=== PATIENT | female | born 1955 | race Caucasian/White ===

== ENCOUNTER → 2019-06-15 13:13 | Outpatient (BNVA) | payer MEDICARE, OTHER, SELFPAY | PROVIDERS: Family Provider Nurse Practitioner Family; PCP Nurse Practitioner Family; Visit Provider Nurse Practitioner | DX: M54.9 Dorsalgia, unspecified (principal); F17.210 Nicotine dependence, cigarettes, uncomplicated; Z98.890 Other specified postprocedural states; Z79.891 Long term (current) use of opiate analgesic | CPT/HCPCS: 99214 ==

== ENCOUNTER 2019-08-20 18:17 | Outpatient (CLI) | payer MEDICARE, OTHER, SELFPAY ==
[2019-08-20 19:56] LABS: Basophils # 0.1 10^3/uL (0.0-0.1); Basophils % 0.9 %; Eosinophils # 0.2 10^3/uL (0.0-0.8); Eosinophils % 2.1 %; Hematocrit 47.9 % (37.0-47.0); Hemoglobin 15.5 g/dL (11.5-15.3); Lymphocytes # 1.9 10^3/uL (0.8-4.8); Lymphocytes % 23.9 %; Mean Corpuscular HGB Conc 32.4 g/dL (30.0-36.0); Mean Corpuscular Hemoglobin 31.1 pg (28.0-34.0); Mean Corpuscular Volume 96.2 fL (81-99); Mean Platelet Volume 10.8 fL (7.4-10.4); Monocytes # 0.8 10^3/uL (0.2-0.9); Monocytes % 10.3 %; Neutrophils % 62.5 %; Nucleated Red Blood Cells % 0 %; Platelet Count 249 10^3/cmm (130-400); Red Blood Count 4.98 10^6/uL (4.1-5.3)
[2019-08-20 20:48] LABS: Erythrocyte Sedimentation Rate 9 mm/hr (0-15)
[2019-08-20 23:52] LABS: Alanine Aminotransferase 17 U/L (0-33); Albumin Level 4.4 g/dL (3.5-5.2); Alkaline Phosphatase 55 IU/L (35-105); Anion Gap 15.2 (5-19); Aspartate Amino Transferase 26 U/L (0-32); Blood Urea Nitrogen 19 mg/dL (8-23); Calcium 10.2 mg/dL (8.5-10.5); Carbon Dioxide 28 mmol/L (22-29); Chloride 103 mmol/L (98-107); Cholesterol 175 mg/dL (0-200); Globulin 2.5 g/dL (1.3-4.6); Glomerular Filtration Rate 62.8 mL/min (90-130); Glucose 62 mg/dL (65-115); HDL Cholesterol 53 mg/dL (60-100); LDL Cholesterol Calculated 101 mg/dL (50-129); LDL HDL Ratio 1.91 RATIO (0.00-3.22); Osmolality Calculated 284 mOsm/kg (285-295); Potassium 6.2 mmol/L (3.5-5.1); Sodium 140 mmol/L (136-145); Thyroid Stimulating Hormone 1.28 uIU/mL (0.27-4.20); Total Bilirubin 0.3 mg/dL (0.15-1.2); Total Protein 6.9 g/dL (6.6-8.7); Triglycerides 106 mg/dL (0-150)
[2019-08-22 12:47] LABS: Anti-Nuclear Antibody Screen NEGATIVE (NEGATIVE)
== END 2019-08-20 18:18 | disposition home or self-care (01) ==
PROVIDERS: Family Provider Nurse Practitioner Family; PCP Nurse Practitioner Family; Visit Provider Nurse Practitioner Family
DX: I73.00 Raynaud's syndrome without gangrene (principal); I10 Essential (primary) hypertension
CPT/HCPCS: 80053; 80061; 84443; 85025; 85651

== ENCOUNTER 2019-08-27 19:03 | Outpatient (CLI) | payer MEDICARE, OTHER, SELFPAY | END 2019-08-27 19:04 | disposition home or self-care (01) | LOC: LAB 19:09 | PROVIDERS: Family Provider Nurse Practitioner Family; PCP Nurse Practitioner Family; Visit Provider Nurse Practitioner Family | DX: Z01.89 Encounter for other specified special examinations (principal) | CPT/HCPCS: 84132 ==

== ENCOUNTER → 2019-09-27 12:50 | Outpatient (BNVA) | payer MEDICARE, OTHER, SELFPAY | PROVIDERS: Family Provider Nurse Practitioner Family; PCP Nurse Practitioner Family; Visit Provider Anesthesiology | DX: M54.5 Low back pain (principal); F17.210 Nicotine dependence, cigarettes, uncomplicated; Z98.890 Other specified postprocedural states; Z79.891 Long term (current) use of opiate analgesic; Z71.6 Tobacco abuse counseling | CPT/HCPCS: 99214 ==

== ENCOUNTER 2019-11-06 10:14 | Outpatient (CLI) | payer MEDICARE, OTHER, SELFPAY ==
--- NOTE | 2019-11-06 10:15 | USCV_ITS ---
Inge Guzman Age: 64 Gender: F : 1955 Exam Date: 11/06/2019 10:37 Ordering Phys: Yvette Storm MD ([email or web address]) Technologist: Leticia Telles Exam Location: [facility] – [place] Indication: HISTORY: Lower extremity edema AND CELLULITIS. PROCEDURES: FINDINGS: The veins are found to be easily compressible. Significant venous reflux was noted on the right side at the below-knee segment of the greater saphenous vein. Significant venous reflux was noted at the distal and below-knee greater saphenous vein segments on the left side CONCLUSIONS 1. No evidence of deep vein thrombosis in the above-mentioned veins. 2. Significant venous reflux of greater than 500 ms was noted at the below-knee greater saphenous vein segment of the right side with a reflux time of 2280 ms. The venous segment was greater than 1 cm from the surface. 3. Significant venous reflux of greater than 500 ms were noted at the distal and below-knee greater saphenous vein segments on the left side. These venous segments were greater than 1 cm deep from the surface. 4. The venous dimensions and the depth from the surface are as mentioned above Dr Yvette Storm MD FAC (Electronically Signed) Final Date: 06 November 2019 16:08 S
== END 2019-11-06 10:15 | disposition home or self-care (01) ==
LOC: RAD 10:17
PROVIDERS: PCP Nurse Practitioner Family; Visit Provider Internal Medicine Cardiovascular Disease
DX: M79.89 Other specified soft tissue disorders (principal); R60.9 Edema, unspecified; L03.90 Cellulitis, unspecified
CPT/HCPCS: 93970

== ENCOUNTER 2019-11-07 08:35 | Outpatient (CLI) | payer MEDICARE, OTHER, SELFPAY ==
--- NOTE | 2019-11-07 08:45 | USCV_ITS ---
Inge Guzman Age: 64 Gender: F : 1955 Exam Date: 11/07/2019 08:56 Ordering Phys: Yvette Storm MD ([email or web address]) Technologist: Leticia Telles Exam Location: [facility] [place] Indication: PAD Risk Factors: Previous Vascular Surgery: RIGHT LEFT BP: 179.0 / BP: 168.0/ 0 0 Waveform Velocity (cm/s) Velocity (cm/s) Waveform Triphasic 221.1 Iliac Prox 105.9 Triphasic Triphasic 180.8 Iliac Mid 106.7 Triphasic Triphasic 154.6 Iliac Distal 115.0 Triphasic Triphasic 123.2 DIRECTOR FUNDRAISING 99.9 Triphasic Triphasic 135.2 SFA Prox 110.4 Triphasic Triphasic 118.9 SFA Mid 99.9 Triphasic Triphasic 83.9 SFA Dist 128.8 Triphasic Triphasic 96.2 POP 63.1 Triphasic Monophasic 63.8 WIRE SAWYER 37.6 Monophasic Monophasic 88.0 DPA 64.5 Triphasic 0.9 KATHY 1.0 FINDINGS RT TBI 0.69 LT TBI 0.72 Mild to moderate diffuse plaques in the iliac and femoral arteries bilaterally CONCLUSIONS 1. Slightly diminished resting KATHY and TBI on the right side, suggestive of mild peripheral artery disease. 2. Normal resting KATHY and TBI on the left side, suggesting no significant arterial obstruction 3. Mild to moderate diffuse plaques in the iliac and femoral arteries bilaterally Dr Yvette Storm MD [facility] (Electronically Signed) Final Date: 07 November 2019 22:54 S
== END 2019-11-07 08:36 | disposition home or self-care (01) ==
LOC: RAD 08:39
PROVIDERS: PCP Nurse Practitioner Family; Visit Provider Internal Medicine Cardiovascular Disease
DX: I73.9 Peripheral vascular disease, unspecified (principal); I70.8 Atherosclerosis of other arteries
CPT/HCPCS: 93925

== ENCOUNTER → 2019-11-09 13:14 | Outpatient (BNVA) | payer MEDICARE, OTHER, SELFPAY | PROVIDERS: Family Provider Nurse Practitioner Family; PCP Nurse Practitioner Family; Visit Provider Anesthesiology | DX: M54.42 Lumbago with sciatica, left side (principal); M54.41 Lumbago with sciatica, right side; F17.210 Nicotine dependence, cigarettes, uncomplicated; Z79.891 Long term (current) use of opiate analgesic; Z71.6 Tobacco abuse counseling; Z98.890 Other specified postprocedural states | CPT/HCPCS: 99214 ==

== ENCOUNTER → 2020-01-03 13:56 | Outpatient (BNVA) | payer MEDICARE, OTHER, SELFPAY | PROVIDERS: Family Provider Nurse Practitioner Family; PCP Nurse Practitioner Family; Visit Provider Anesthesiology | DX: M54.42 Lumbago with sciatica, left side (principal); M54.41 Lumbago with sciatica, right side; F17.210 Nicotine dependence, cigarettes, uncomplicated; Z79.891 Long term (current) use of opiate analgesic; Z98.890 Other specified postprocedural states | CPT/HCPCS: 99213; 99214 ==

== ENCOUNTER → 2020-03-11 12:41 | Outpatient (BNVA) | payer MEDICARE, OTHER, SELFPAY | PROVIDERS: Family Provider Nurse Practitioner Family; PCP Nurse Practitioner Family; Visit Provider Anesthesiology | DX: M54.42 Lumbago with sciatica, left side (principal); F17.210 Nicotine dependence, cigarettes, uncomplicated; Z79.891 Long term (current) use of opiate analgesic; Z98.890 Other specified postprocedural states | CPT/HCPCS: 99212; 99214 ==

== ENCOUNTER → 2020-05-23 13:57 | Outpatient (BNVA) | payer MEDICARE, OTHER, SELFPAY | PROVIDERS: Family Provider Nurse Practitioner Family; PCP Nurse Practitioner Family; Visit Provider Anesthesiology | DX: M54.42 Lumbago with sciatica, left side (principal); F17.210 Nicotine dependence, cigarettes, uncomplicated; F18.10 Inhalant abuse, uncomplicated; Z98.890 Other specified postprocedural states; Z79.891 Long term (current) use of opiate analgesic | CPT/HCPCS: 99213 ==

== ENCOUNTER 2020-06-16 10:38 | Outpatient (CLI) | payer MEDICARE, OTHER, SELFPAY ==
--- NOTE | 2020-06-16 10:45 | CT_ITS ---
WS: [id number] LDCT LUNG CANCER SCREENING TECHNIQUE: Noncontrast CT of the chest with coronal and sagittal reformatted images. CLINICAL INFORMATION: NICOTINE DEPEDENCE, CIGARETTES COMPARISON: 4 20,018 DLP: 53.79 mGy.cm DIvol: 1.[address] scans at [facility] use at least one of these dose optimization techniques: automat ed exposure control; mA and/or kV adjustment per patient size (includes targeted exams where dose is matched to clinical indication); or iterative reconstruction. FINDINGS: Moderate chronic emphysematous changes. No focal consolidation or pleural fluid. Spiculated pulmonary nodule right upper lobe laterally new from the prior examination suspicious for neoplasm. This measu res approximately 1.0 x 1.0 CM. Additional adjacent satellite nodule measuring 7.8 x 7.5 mm. Subsegmental atelectasis in the right upper lobe, lingula, right middle lobe. No mediastinal or hilar lymphadenopathy. Coronary calcification. Calcified right hilar lymph nodes. A few calcified granulom as. Chronic anterior wedging in the mid thoracic spine with vertebroplasty changes at T7-T8. Heterogeneous nodular breast tissue upper outer right breast.Further evaluation with diagnostic mammo graphy and ultrasound. CT/CT lung screening [id number] IMPRESSION: LUNG-RADS: 4X-Suspicious FOLLOW UP: PET/CT recommended HETEROGENEOUS NODULAR BREAST TISSUE UPPER OUTER RIGHT BREAST. RECOMMEND FURTHER EVALUATION WITH DIAGNOSTIC MAMMOGRAPHY AND ULTRASOUND.
== END 2020-06-16 10:39 | disposition home or self-care (01) ==
LOC: CT 10:39
PROVIDERS: PCP Nurse Practitioner Family; Visit Provider Nurse Practitioner Family
DX: Z12.2 Encounter for screening for malignant neoplasm of respiratory organs (principal); F17.210 Nicotine dependence, cigarettes, uncomplicated
CPT/HCPCS: 71271

== ENCOUNTER → 2020-06-19 15:23 | Outpatient (BNVA) | payer MEDICARE, OTHER, SELFPAY | PROVIDERS: PCP Nurse Practitioner Family; Visit Provider Nurse Practitioner Family | DX: Z11.52 Encounter for screening for COVID-19 (principal) | CPT/HCPCS: 87635 ==

== ENCOUNTER 2020-06-23 11:35 | Outpatient (CLI) | payer MEDICARE, OTHER, SELFPAY ==
--- NOTE | 2020-06-23 13:25 | PFTS_ITS ---
Date of Study:06/23/20 Date of Dictation: 06/25/2020 MECHANICS: Forced vital capacity (FVC) is normal. Forced expiratory volume in one second (FEV1) is normal. FEV1/FVC is normal. Postbronchodilator study not performed. FLOW VOLUME LOOP: Normal . LUNG VOLUMES: Not measured DIFFUSING CAPACITY FOR CARBON MONOXIDE: Not measured . INTERPRETATION: The spirometry is normal. Postbronchodilator study not performed. Please correlate clinically. MTDD
== END 2020-06-23 11:36 | disposition home or self-care (01) ==
LOC: RT 11:38
PROVIDERS: PCP Nurse Practitioner Family; Visit Provider Nurse Practitioner Family
DX: J44.9 Chronic obstructive pulmonary disease, unspecified (principal)
CPT/HCPCS: 94010

== ENCOUNTER 2020-07-01 12:01 | Outpatient (CLI) | payer MEDICARE, OTHER, SELFPAY ==
--- NOTE | 2020-07-01 12:45 | USCV_ITS ---
Inge Guzman Age: 65 Gender: F : 1955 Exam Date: 07/01/2020 12:20 Ordering Phys: Yvette Storm MD ([email or web address]) Technologist: Charis Alejandro Exam Location: [facility] [place] Indication: BLE CRAMPING PVD Risk Factors: Previous Vascular Surgery: RIGHT LEFT BP: 100.0 / BP: 110.0/ 0 0 Waveform Velocity (cm/s) Velocity (cm/s) Waveform Triphasic 245.2 Iliac Prox 109.4 Triphasic Triphasic 236.8 Iliac Mid 164.1 Triphasic Triphasic 178.3 Iliac Distal 137.4 Triphasic Triphasic 149.1 HOOKER INSPECTOR 135.4 Triphasic Triphasic 127.9 SFA Prox 113.6 Triphasic Triphasic 108.1 SFA Mid 123.5 Triphasic Triphasic 126.8 SFA Dist 174.0 Triphasic Triphasic 79.8 POP 57.2 Biphasic Triphasic 64.9 SECTIONIZER 51.3 Triphasic Triphasic 62.9 DPA 63.1 Triphasic 1.0 KATHY 1.1 FINDINGS RT SECTIONIZER- 115 RT DPA- 112 LT SECTIONIZER- 118 LT DPA- 120 Mild to moderate intravenous plaques in the iliac and femoral arteries bilaterally Normal resting KATHY of 1.0 on the right side and 1.1 in the left side CONCLUSIONS 1. Normal resting ABIs bilaterally. 2. Mild to moderate heterogeneous plaques bilaterally in the iliac and femoral arteries with possibly no hemodynamically significant stenosis. Dr Yvette Storm MD [facility] (Electronically Signed) Final Date: 02 July 2020 08:23 S
== END 2020-07-01 12:02 | disposition home or self-care (01) ==
LOC: US 12:02
PROVIDERS: PCP Nurse Practitioner Family; Visit Provider Internal Medicine Cardiovascular Disease
DX: I73.9 Peripheral vascular disease, unspecified (principal); I70.8 Atherosclerosis of other arteries
CPT/HCPCS: 93925

== ENCOUNTER 2020-07-04 10:13 | Outpatient (CLI) | payer MEDICARE, OTHER, SELFPAY ==
--- NOTE | 2020-07-04 10:17 | MM_ITS ---
WS: [id number] DIAGNOSTIC BILATERAL DIGITAL MAMMOGRAM WITH CAD RIGHT breast ultrasound, limited HISTORY: RT BREAST LUMP UPPER OUTER QUADRANT COMPARISON: 09/29/2018, 08/12/2017, 03/14/2013 TECHNIQUE: Bilateral craniocaudad, mediolateral oblique, and mediolateral views are submitted. Spot c ompression RIGHT CC. Computer aided detection utilized. Breast composition: The breasts are heterogeneously dense, which may obscure small masses. Mass in th e upper outer quadrant of the RIGHT breast has been present since 2012. Not significantly changed in size. This mass corresponds to the mass seen on recent PET/CT. Benign bilateral calcifications. RIGHT breast ultrasound, limited. Mass present in the upper outer quadrant of the RIGHT breast measures 1.4 x 1.9 x 0.6 cm. This mass i s been present on multiple prior examinations. No increased vascularity and the margins are smooth. MM/[place] [id number] IMPRESSION: BI-RADS: 2-Benign FOLLOW UP: 1 Year Follow-up Long-term stability of the solid mass in the RIGHT upper outer quadrant therefo re likely benign.
== END 2020-07-04 10:14 | disposition home or self-care (01) ==
LOC: RADSHAW 10:15
PROVIDERS: PCP Nurse Practitioner Family; Visit Provider Nurse Practitioner Family
DX: N63.11 Unspecified lump in the right breast, upper outer quadrant (principal)
CPT/HCPCS: 76642; 77066

== ENCOUNTER → 2020-07-23 13:34 | Outpatient (BNVA) | payer MEDICARE, OTHER, SELFPAY | PROVIDERS: PCP Nurse Practitioner Family; Visit Provider Anesthesiology | DX: G89.29 Other chronic pain (principal); M54.42 Lumbago with sciatica, left side; F17.210 Nicotine dependence, cigarettes, uncomplicated; Z79.891 Long term (current) use of opiate analgesic | CPT/HCPCS: 99213 ==

== ENCOUNTER → 2020-09-10 13:29 | Outpatient (BNVA) | payer MEDICARE, OTHER, SELFPAY | PROVIDERS: PCP Nurse Practitioner Family; Referring Provider Nurse Practitioner Family; Visit Provider Nurse Practitioner Family | DX: N39.46 Mixed incontinence (principal) | CPT/HCPCS: 81003 ==

== ENCOUNTER 2020-09-15 10:41 | Outpatient (CLI) | payer MEDICARE, OTHER, SELFPAY ==
--- NOTE | 2020-09-15 10:52 | MR_ITS ---
WS: [id number] MRI BRAIN WITH AND WITHOUT CONTRAST HISTORY: CHRONIC HEADACHE COMPARISON: 07/14/2015 TECHNIQUE: Multiplanar imaging performed through the brain with MultiHance 14 ml's IV. No acute infarcts are seen. Davis-white matter differentiation is well preserved. Mild progression of chronic microvascular ischemic changes since 2016. Bilateral periventricular and subchondral white ma tter signal abnormalities. Mild progression since the prior study. No susceptibility artifacts or prior lacunar infarcts. Ventricles and extra-axial spaces are normal. Clivus and pituitary gland are normal. Visualized posterior fossa and brainstem are also normal. Postcontrast images are negative for masses or vascular malformations. Dural venous sinuses are normal. Paranasal sinuses: Well aerated with no significant disease. Mastoid air cells: Normal. Calvarium and scalp: Normal. MR/MR head wo/w con [id number] IMPRESSION: 1. Moderate chronic microvascular ischemic changes in the white matter. Progre ssed since 2016. 2. No enhancing masses. 3. No acute infarct.
[2020-09-15] MEDS: gadobenate dimeglumine 20 mL vial IV (11:37)
== END 2020-09-15 10:42 | disposition home or self-care (01) ==
PROVIDERS: PCP Nurse Practitioner Family; Visit Provider Nurse Practitioner Family
DX: R51.9 Headache, unspecified (principal)
CPT/HCPCS: 70553; A9577

== ENCOUNTER → 2020-09-23 11:24 | Outpatient (BNVA) | payer MEDICARE, OTHER, SELFPAY | PROVIDERS: PCP Nurse Practitioner Family; Visit Provider Nurse Practitioner | DX: M54.5 Low back pain (principal); M25.512 Pain in left shoulder; F17.210 Nicotine dependence, cigarettes, uncomplicated; Z98.890 Other specified postprocedural states; Z79.891 Long term (current) use of opiate analgesic; Z71.6 Tobacco abuse counseling | CPT/HCPCS: 99215 ==

== ENCOUNTER → 2020-10-01 12:56 | Outpatient (BNVA) | payer MEDICARE, OTHER, SELFPAY | PROVIDERS: PCP Nurse Practitioner Family; Visit Provider Anesthesiology Pain Medicine | DX: M25.512 Pain in left shoulder (principal); F17.210 Nicotine dependence, cigarettes, uncomplicated; Z79.891 Long term (current) use of opiate analgesic | CPT/HCPCS: 64418; 77002; J1100; J3490 ==

== ENCOUNTER → 2020-10-23 10:42 | Outpatient (BNVA) | payer MEDICARE, OTHER, SELFPAY | PROVIDERS: PCP Nurse Practitioner Family; Visit Provider Urology | DX: N39.46 Mixed incontinence (principal); R35.8 Other polyuria | CPT/HCPCS: 81003 ==

== ENCOUNTER → 2020-11-28 10:08 | Outpatient (BNVA) | payer MEDICARE, OTHER, SELFPAY | PROVIDERS: PCP Nurse Practitioner Family; Visit Provider Anesthesiology | DX: G89.29 Other chronic pain (principal); M54.42 Lumbago with sciatica, left side; M54.2 Cervicalgia; F17.210 Nicotine dependence, cigarettes, uncomplicated; Z98.890 Other specified postprocedural states; Z79.891 Long term (current) use of opiate analgesic | CPT/HCPCS: 99214 ==

== ENCOUNTER → 2020-12-24 13:22 | Outpatient (BNVA) | payer MEDICARE, OTHER, SELFPAY | PROVIDERS: PCP Nurse Practitioner Family; Visit Provider Urology | DX: N39.46 Mixed incontinence (principal) | CPT/HCPCS: 81003 ==

== ENCOUNTER → 2021-01-29 10:32 | Outpatient (BNVA) | payer MEDICARE, OTHER, SELFPAY | PROVIDERS: PCP Nurse Practitioner Family; Visit Provider Anesthesiology | DX: G89.29 Other chronic pain (principal); M54.2 Cervicalgia; M54.50 Low back pain, unspecified; F18.10 Inhalant abuse, uncomplicated; Z98.890 Other specified postprocedural states; F17.210 Nicotine dependence, cigarettes, uncomplicated; Z79.891 Long term (current) use of opiate analgesic | CPT/HCPCS: 99214 ==

== ENCOUNTER → 2021-03-04 15:31 | Outpatient (BNVA) | payer MEDICARE, OTHER, SELFPAY | PROVIDERS: PCP Nurse Practitioner Family; Visit Provider Nurse Practitioner Family | DX: I87.2 Venous insufficiency (chronic) (peripheral) (principal) | CPT/HCPCS: 80048 ==

== ENCOUNTER → 2021-03-14 18:47 | Outpatient (BNVA) | payer MEDICARE, OTHER, SELFPAY | PROVIDERS: PCP Nurse Practitioner Family; Visit Provider Nurse Practitioner | DX: M25.561 Pain in right knee (principal) | CPT/HCPCS: 73562 ==

== ENCOUNTER → 2021-03-31 12:52 | Outpatient (BNVA) | payer MEDICARE, OTHER, SELFPAY | PROVIDERS: PCP Nurse Practitioner Family; Visit Provider Urology | DX: N39.46 Mixed incontinence (principal) | CPT/HCPCS: 81003 ==

== ENCOUNTER → 2021-05-07 09:09 | Outpatient (BNVA) | payer MEDICARE, OTHER, SELFPAY | PROVIDERS: PCP Registered Nurse; Visit Provider Anesthesiology | DX: G89.29 Other chronic pain (principal); M54.50 Low back pain, unspecified; M54.2 Cervicalgia; F18.10 Inhalant abuse, uncomplicated; F17.210 Nicotine dependence, cigarettes, uncomplicated; Z79.891 Long term (current) use of opiate analgesic; Z98.890 Other specified postprocedural states | CPT/HCPCS: 99214 ==

== ENCOUNTER 2021-07-08 20:00 | Outpatient (CLI) | payer MEDICARE, OTHER, SELFPAY | END 2021-07-08 20:01 | disposition home or self-care (01) | LOC: SLEEP 07-09 06:31 | PROVIDERS: PCP Registered Nurse; Visit Provider Anesthesiology Pain Medicine | DX: G47.10 Hypersomnia, unspecified (principal); R53.83 Other fatigue; R06.83 Snoring | CPT/HCPCS: 95810 ==

== ENCOUNTER 2021-08-10 15:30 | Outpatient (CLI) | payer MEDICARE, OTHER, SELFPAY ==
--- NOTE | 2021-08-10 15:45 | XR_ITS ---
WS: [id number] DEXA (DUAL ENERGY X-RAY ABSORPTIOMETRY) Bone mineral density was performed using a [employer] machine. HISTORY: POSTMENOPAUSAL COMPARISON: 04/02/2019 Lumbar spine BMD (L1-L4): 0.923 g/cm2 T score: -2.1 Z score: -0.8 Total hip BMD: Left: 0.635 g/cm2. T score: -3.0 Z score: -1.8 Right: 0.679 g/cm2. T score: -2.6 Z score: -1.5 10 year probability of a major osteoporotic fracture is 26.7%. Compared to the prior study from 04/02/2019. Lumbar spine bone mineral density has decrease by 5.6%. Bilateral hips bone mineral density has decreased by 0.5%. XR/XR DEXA axial skeleton* [id number] IMPRESSION: OSTEOPOROSIS based upon the WHO classification for females. Significant decreas e in bone mineral density within the lumbar spine since the prior study.
== END 2021-08-10 15:31 | disposition home or self-care (01) ==
LOC: RAD 15:34
PROVIDERS: PCP Registered Nurse; Visit Provider Registered Nurse
DX: Z78.0 Asymptomatic menopausal state (principal); M81.0 Age-related osteoporosis without current pathological fracture
CPT/HCPCS: 77080

== ENCOUNTER 2021-09-04 14:22 | Outpatient (CLI) | payer MEDICARE, OTHER, SELFPAY ==
--- NOTE | 2021-09-04 14:31 | MM_ITS ---
WS: [id number] BILATERAL 3D TOMOSYNTHESIS DIGITAL SCREENING MAMMOGRAPHY WITH CAD CLINICAL INFORMATION: SCREENING HISTORY: Screening mammogram. No current complaints. COMPARISON: July 04, 2020 TECHNIQUE: Bilateral CC and MLO views. FINDINGS: The breasts are composed of heterogeneous fibroglandular density tissue, which can limit the detectio n of small underlying mass lesions. Punctate and lucent centered calcifications. Nodular ovoid densit y upper outer quadrant RIGHT breast posterior depth is stable. No suspicious mass, asymmetry, calcifi cations, or architectural distortion. No evidence of malignancy. MM/[place] [id number] IMPRESSION: BI-RADS: 2-Benign FOLLOW UP: 1 Year Follow-up Recommend return to annual screening mammography.
== END 2021-09-04 14:23 | disposition home or self-care (01) ==
LOC: RAD 14:23
PROVIDERS: PCP Registered Nurse; Visit Provider Registered Nurse
DX: Z12.31 Encounter for screening mammogram for malignant neoplasm of breast (principal)
CPT/HCPCS: 77063; 77067

== ENCOUNTER → 2021-09-09 15:01 | Outpatient (BNVA) | payer MEDICARE, OTHER, SELFPAY | PROVIDERS: PCP Registered Nurse; Referring Provider Registered Nurse; Visit Provider Specialist | DX: R20.0 Anesthesia of skin (principal); M25.512 Pain in left shoulder | CPT/HCPCS: 73030; 99204 ==

== ENCOUNTER → 2022-02-16 14:01 | Outpatient (BNVA) | payer MEDICARE, OTHER, SELFPAY | PROVIDERS: PCP Registered Nurse; Visit Provider Internal Medicine Cardiovascular Disease | DX: I49.8 Other specified cardiac arrhythmias (principal); M79.89 Other specified soft tissue disorders; E78.5 Hyperlipidemia, unspecified; I10 Essential (primary) hypertension; R29.6 Repeated falls; R06.02 Shortness of breath; I77.9 Disorder of arteries and arterioles, unspecified; F17.210 Nicotine dependence, cigarettes, uncomplicated | CPT/HCPCS: 93005; 99214 ==

== ENCOUNTER 2022-02-19 12:19 | Outpatient (CLI) | payer MEDICARE, OTHER, SELFPAY ==
[2022-02-19 13:07] LABS: Anion Gap 13.8 (5-19); Blood Urea Nitrogen 15 mg/dL (8-23); Carbon Dioxide 29 mmol/L (22-29); Chloride 99 mmol/L (98-107); Glomerular Filtration Rate 71.3 mL/min (90-130); Glucose 97 mg/dL (65-115); NT Pro B Type Natriuretic Pept 347 pg/mL (0-125); Osmolality Calculated 287 mOsm/kg (285-295); Potassium 3.8 mmol/L (3.5-5.1); Sodium 138 mmol/L (136-145)
== END 2022-02-19 12:20 | disposition home or self-care (01) ==
PROVIDERS: PCP Registered Nurse; Visit Provider Internal Medicine Cardiovascular Disease
DX: R06.02 Shortness of breath (principal); I10 Essential (primary) hypertension
CPT/HCPCS: 36415; 80048; 83880

== ENCOUNTER 2022-03-10 09:41 | Outpatient (CLI) | payer MEDICARE, OTHER, SELFPAY ==
--- NOTE | 2022-03-10 09:30 | USCV_ITS ---
Inge Guzman Age: 67 Gender: F : 1955 Exam Date: 03/10/2022 10:52 Ordering Phys: Yvette Storm MD ([email or web address]) Technologist: Ariadna Garsia [place] [facility] [place]: sob BP: 112 / 88 HR: 59 Rhythm: Sinus Technical Quality: Adequate MEASUREMENTS (Male / Female) Normal Values 2D ECHO LV Diastolic Diameter PLAX 4.4 cm 4.2 - 5.9 / 3.9 - 5.3 cm LV Systolic Diameter PLAX 2.7 cm IVS Diastolic Thickness 0.9 cm 0.6 - 1.0 / 0.6 - 0.9 cm IVS Systolic Thickness 1.7 cm LVPW Diastolic Thickness 1.0 cm 0.6 - 1.0 / 0.6 - 0.9 cm LVPW Systolic Thickness 1.5 cm LVOT Diameter 2.0 cm LV Ejection Fraction 2D Teich 71.1 % LV Ejection Fraction MOD 2C 65.7 % LV Ejection Fraction 2C AL 66.7 % LA Diameter 2.3 cm LA Width 4.3 cm LA Height 3.8 cm RA Width 3.5 cm RA Height 3.0 cm Aorta at Sinotubular Diameter 2.6 cm IVC Diameter 2.5 cm M-MODE MV E Point Septal Separation 1.4 cm DOPPLER AV Peak Velocity 120.0 cm/s LVOT Peak Velocity 83.0 cm/s AV Area Cont Eq vti 2.1 cm squared AV Area Cont Eq pk 2.2 cm squared MV Peak Velocity 172.0 cm/s MV Area PHT 3.7 cm squared Mitral E to A Ratio 0.7 MV E' Velocity 51.5 cm/s Mitral E to MV E' Ratio 14.8 Mitral E to LV E' Lateral Ratio 14.0 Mitral E to LV E' Septal Ratio 15.8 TR Peak Velocity 199.8 cm/s TR Peak Gradient 16.0 mmHg Right Atrial Pressure 8.0 mmHg Pulmonary Artery Systolic Pressu 24.0 mmHg PV Peak Velocity 79.0 cm/s RV Acceleration Time 0.1 s RV Ejection Time 0.3 s RV AcT/ET 0.3 FINDINGS Left Ventricle Normal left ventricular size and systolic function, EF 67 %. Mild hypokinesia of the basal inferior wall segment. Mild left ventricular hypertrophy. Grade I/IV diastolic dysfunction (abnormal relaxation filling pattern), normal to mildly elevated filling pressures. Right Ventricle The right ventricle is normal in size and function. Right Atrium The right atrium is normal in size. Left Atrium Mildly increased left atrial size. Mitral Valve Thickened mitral valve. Mild mitral annular calcification. Mild mitral valve regurgitation. Aortic Valve Thickened noncoronary cusp of the aortic valve. Trace aortic valve regurgitation. Tricuspid Valve Mild tricuspid valve regurgitation. Pulmonic Valve Structurally normal pulmonic valve without significant stenosis. There is no pulmonic regurgitation. Pericardium Normal pericardium without effusion. Aorta Normal ascending aorta dimension. IVC Normal inferior vena cava. CONCLUSIONS Normal left ventricular size and systolic function, EF 67 %. Mild hypokinesia of the basal inferior wall segment. Mild left ventricular hypertrophy. Grade I/IV diastolic dysfunction (abnormal relaxation filling pattern), normal to mildly elevated filling pressures. Mildly increased left atrial size. Thickened mitral valve. Mild mitral annular calcification. Mild mitral valve regurgitation. Thickened noncoronary cusp of the aortic valve. Trace aortic valve regurgitation. Mild tricuspid valve regurgitation. Estimated pulmonary artery peak systolic pressure of 24 mmHg There is no pericardial effusion. There are no intracardiac masses. No previous study is available for comparison. Dr Yvette Storm MD [facility] (Electronically Signed) Final Date: 11 March 2022 19:40 S
== END 2022-03-10 09:42 | disposition home or self-care (01) ==
PROVIDERS: PCP Registered Nurse; Visit Provider Internal Medicine Cardiovascular Disease
DX: I08.3 Combined rheumatic disorders of mitral, aortic and tricuspid valves (principal); R06.02 Shortness of breath; R06.09 Other forms of dyspnea
CPT/HCPCS: 93306

== ENCOUNTER 2022-04-12 08:02 | Outpatient (CLI) | payer MEDICARE, OTHER, SELFPAY ==
--- NOTE | 2022-04-12 | ECG_ITS ---
[facility] Test Date: 2022-04-12 Pat Name: Inge Guzman Department: Room: Gender: Female Parole Director: : 1955 Requested By: Yvette Storm Order Number: [id number] Judy MD: Yvette Storm M.D. Interpretive Statements NAME OF STUDY: LEXISCAN SESTAMIBI STRESS TEST INDICATION: Shortness of Breath, PROCEDURE: At the baseline, the EKG revealed. The baseline heart was 82 bpm with a blood pressue of 151/79 mm of Hg Lexiscan was infused over a period of 20 seconds. A total of 0.4 milligrams of Lexiscan was infused. The stress phase was continued for a total of 5 minutes. Heart rate at the end of the stress phase was 89 bpm with a blood pressure 150/69 mm of Hg. The EKG at the peak infusion revealed no significant changes. Sestamibi was injected 20 seconds after the Lexiscan infusion. Heart rate at the end of the recovery phase was 93 bpm with a blood pressure of 149/72 mm of Hg. CONCLUSION: 1. No significant EKG changes with the LexiScan infusion 2. No LexiScan induced chest pain or cardiac arrhythmia 3. Normal blood pressure and heart rate response 4. Sestamibi/sestamibi perfusion scan pending; see separate report. Electronically Signed On 04-20-2022 18:07:29 INVESTIGATION CLERK by Yvette Storm M.D. [email or web address]
--- NOTE | 2022-04-12 08:16 | NMCV_ITS ---
NM shana perf SPECT r/s* [id number] Inge Guzman Age: 67 Gender: F : 1955 Exam Date: 04/12/2022 08:16 Ordering Phys: Yvette Storm MD ([email or web address]) Technologist: LAMAR Santizo Exam Location: [facility] Indications: SHORTNESS OF BREATH STRESS TEST Please see separate stress test report in [facility] for full findings IMAGE PROTOCOL Rest/Stress 1 Lexiscan Day Radiopharmaceutical Dose (mCi) Administration Site Administered by Rest: Tc-99m 10.9 IV LAMAR Slater Sestamibi Stress:Tc-99m 32.9 IV LAMAR Slater Sestamibi Rest: 12-Apr-2022 60 Discovery 630 Stress: 12-Apr-2022 30 Discovery 630 0.4mg Lexiscan. Images obtained in supine and prone position. SPECT RESULTS Technical Quality: Excellent Raw Data Analysis: Normal Image Corrections: No attenuation or motion correction applied Summed Stress Score: 9 Summed Rest Score: 2 Summed Difference Score: 8 PERFUSION FINDINGS Small to moderate area of moderately decreased tracer uptake in the apical anterior, apical lateral, apical septal and LV apex. Significant reversibility was noted in these regions at rest FUNCTIONAL RESULTS (calculated via Gated SPECT) Stress Image LV EF (%): 73 Stress EDV (mL):84 TID: 1.1 Stress ESV (mL):23 FUNCTIONAL FINDINGS: Segmental wall motion analysis revealing no gross wall motion abnormalities. IMPRESSIONS 1. Myocardial perfusion imaging revealing small to moderate area of reversible defect in all the apical segments suggesting ischemia in the distribution of all the 3 coronary arteries. 2. Normal LV ejection fraction of 73%. 3. LV wall motion analysis revealing no gross wall motion abnormalities. 4. Normal LV volume No similar previous studies are available for comparison Dr Yvetet Storm MD [facility] (Electronically Signed) Final Date: 14 April 2022 08:43 S
[2022-04-12] MEDS: regadenoson 0.4 Mg/5 ml Syringe IVP (10:28)
[2022-04-12 10:41] VITALS: BP 148/71; PULSE 96
== END 2022-04-12 08:03 | disposition home or self-care (01) ==
LOC: CDL 08:05
PROVIDERS: PCP Registered Nurse; Visit Provider Internal Medicine Cardiovascular Disease
DX: R06.02 Shortness of breath (principal)
CPT/HCPCS: 36415; 78452; 93017; 96374; A9500; J2785

== ENCOUNTER → 2022-05-04 10:46 | Outpatient (BNVA) | payer MEDICARE, OTHER, SELFPAY | PROVIDERS: PCP Registered Nurse; Visit Provider Internal Medicine Cardiovascular Disease | DX: R94.39 Abnormal result of other cardiovascular function study (principal); R06.02 Shortness of breath; I10 Essential (primary) hypertension; E78.5 Hyperlipidemia, unspecified; I77.9 Disorder of arteries and arterioles, unspecified; I49.8 Other specified cardiac arrhythmias; R07.9 Chest pain, unspecified; F17.210 Nicotine dependence, cigarettes, uncomplicated | CPT/HCPCS: 99215 ==

== ENCOUNTER 2022-05-28 13:38 | Outpatient (CLI) | payer MEDICARE, OTHER, SELFPAY ==
[2022-05-28 14:35] LABS: Basophils # 0.1 10^3/uL (0.0-0.1); Basophils % 0.9 %; Eosinophils # 0.4 10^3/uL (0.0-0.8); Hemoglobin 14.2 g/dL (11.5-15.3); Lymphocytes # 3.2 10^3/uL (0.8-4.8); Lymphocytes % 34.7 %; Mean Corpuscular HGB Conc 32.3 g/dL (30.0-36.0); Mean Corpuscular Hemoglobin 29.8 pg (28.0-34.0); Mean Corpuscular Volume 92.2 fl (81-99); Mean Platelet Volume 9.3 fL (7.4-10.4); Monocytes # 1.1 10^3/uL (0.2-0.9); Monocytes % 12.4 %; Neutrophils # 4.37 10^3/uL (1.8-7.7); Neutrophils % 47.7 %; Nucleated Red Blood Cells % 0 %; Platelet Count 269 10^3/cmm (130-400); Red Blood Count 4.77 10^6/uL (4.1-5.3); White Blood Count 9.2 10^3/uL (4.0-10.0)
[2022-05-28 14:50] LABS: Prothrombin Time (Patient) 12.4 Seconds (12.0-15.1)
[2022-05-28 15:05] LABS: Anion Gap 14.5 (5-19); Blood Urea Nitrogen 15 mg/dL (8-23); Calcium 8.4 mg/dL (8.5-10.5); Carbon Dioxide 27 mmol/L (22-29); Chloride 100 mmol/L (98-107); Glomerular Filtration Rate 62.3 mL/min (90-130); Glucose 80 mg/dL (65-115); NT Pro B Type Natriuretic Pept 53 pg/mL (0-125); Osmolality Calculated 284 mOsm/kg (285-295); Potassium 4.5 mmol/L (3.5-5.1); Sodium 137 mmol/L (136-145)
== END 2022-05-28 13:39 | disposition home or self-care (01) ==
LOC: LAB 13:44
PROVIDERS: PCP Registered Nurse; Visit Provider Internal Medicine Cardiovascular Disease
DX: R94.39 Abnormal result of other cardiovascular function study (principal); Z98.890 Other specified postprocedural states
CPT/HCPCS: 36415; 80048; 83880; 85025; 85610; 86850; 86900

== ENCOUNTER 2022-06-01 06:07 | Outpatient (CLI) | payer MEDICARE, OTHER, SELFPAY ==
[2022-06-01] VITALS (21 sets, daily range): BP systolic 123–160; BP diastolic 69–86; PULSE 77–91; RESP 11–18; TEMP 36.7; O2SAT 89–94; BMI 26.1
--- NOTE | 2022-06-01 06:00 | XACV_ITS ---
Exam Room: 2 Ht: 163 cm Wt: 69 kg BSA: 1.78 m2 Gender: Female : 1955 Any Known Allergies: Sulfa Exam Priority: Routine Procedure(s): Procedure Description: Diagnostic procedure Procedure Description: Left Heart Catheterization Procedure Description: Left ventriculography Procedure Description: Coronary Angiography Emeterio CARCAMO; Diagnostic Cath Status: Elective Diagnostic Findings * The left main is a medium to large caliber short vessel with no significant stenotic lesions. * The left anterior descending artery is a medium caliber vessel which appears to wrap around the LV apex. The mid LAD was found to have around 20 to 30% tubular narrowing right after the takeoff of the first diagonal branch. Minimal intimal irregularities are noted in the midsegment. No significant extremity lesions were noted. * The circumflex artery is a medium caliber dominant vessel. It gives of a high obtuse marginal branch-intermedius artery which was found to have around 30% segmental narrowing proximally. The circumflex proper was found to have minimal narrowing near the ostium. No significant stenotic lesions were noted. * The right coronary artery is a small caliber nondominant vessel which was found to have around 40% narrowing proximally. No other significant stenotic lesions were noted. PCI Status: Elective Conclusions 1. Patient with history of hypertension, dyslipidemia, peripheral artery disease, presenting with complaints of increasing shortness of breath with exertion and fatigue. Abnormal Myocardial perfusion imaging. For further evaluation of her symptoms, a cardiac catheterization was recommended. Patient underwent left heart catheterization with the left and right coronary angiogram and LV angiogram today. The findings are as follows. 2. 1. Mild coronary artery disease. #2 mild coronary calcification in the proximal segments of the left anterior descending artery and circumflex artery. #3 normal LV ejection fraction 60%. #4 LVEDP of 18 mmHg. Diagnostic RX Recommendation: medical therapy and/or counseling LV EDP: 18 mmHg Ventriculography Ejection Fraction: 60.0 % Left Ventriculography Findings: * The LV gram was performed in the DENNEY position. The LV cavity was of normal size. Mild hypokinesis of the LV apex was noted. LV ejection fraction was around 60%. LVEDP was 18 mmHg, went up to 34 mmHg following the LV angiogram. Pressures Phase:Rest AO : 102 / 75 ( 101 ) @ 7:31:00 AM 101 / 72 ( 86 ) @ 7:33:00 AM 142 / 83 ( 111 ) @ 7:41:00 AM 142 / 83 ( 110 ) @ 7:41:00 AM LV : 133 / 2 / 18 @ 7:40:00 AM 139 / 11 / 34 @ 7:41:00 AM 141 / 9 / 34 @ 7:41:00 AM Valves Phase:DefaultPhase AV : 0.0 @ 7:51:59 AM 0.0 @ 7:51:59 AM AV Mean Gradient: 0.0 @ 7:51:59 AM 0.0 @ 7:51:59 AM Clinical Evaluation EBL: 5mL-10mL Procedural Details Procedure Consent Obtained. Admit Source: Out Patient. Pre-Procedure Time Out. Identified patient by full name and date of as verbalized by the patient/guarantor. Does the consent match the physician's order: Yes. Accurate & Complete Informed Consent: Yes. Inpatient/Outpatient History & Physical on Chart: Yes. If H&P is completed, is and addenduem needed: No; If yes, is the addendum complete: N/A. Visualize and Verify Site with Patient/Guarantor: N/A. Relevant Radiology Images available: N/A. The risks, benefits, and alternatives of sedation and/or procedure were discussed by physician. The patient agrees to continue. [facility] Clinical Fraility Score: 4: Vulnerable. Dry Pan Charger Indications: Suspected CAD. Chest Pain Symptom Assessment: Atypical Angina. Cardiovascular Instability: No,. Correct patient, site and procedure confirmed by cath team. PERRLA. Strong, equal hand sprinkler installer bilaterally. Lungs clear x 5 lobes. IV Site on Arrival: 20 gauge in the left wrist. IV Fluids: 0.9% NaCl at KVO. 0 mL infused prior to yard laborer. Pre Procedural Pulses: bilateral radial was 3+. Pre Procedural Pulses: bilateral posterior tibial was 1+. Pre Procedural Pulses: bilateral dorsalis pedis was 2+. Oxygen started at 2liters/min via nasal canula. right groin was prepped with chloroprep then draped in the usual sterile fashion. right radial was prepped with chloroprep then draped in the usual sterile fashion. Physician notified. Baseline sample Acquired. HR: 86 BPM. Physician arrived. Physician scrubbed in. Immediate Pre-Procedure Time Out. Correct Patient: Yes; Correct Procedure: Yes; Correct Site: Yes; Correct Patient Position: Yes; Correct Supplies: Yes; Dried Flammable Prep: Yes; Blood Products Available: N/A;. Procedure started. Lidocaine 1% infiltrated to the right radial. Arterial access obtained. A 5 martiniquais Nicko catheter in over wire. Multiple views taken of right coronary artery. Catheter redirected to the LCA. Multiple views taken of left coronary artery. Catheter redirected to the RCA. Multiple views taken of right coronary artery. Catheter removed over the exchange wire. A 5 martiniquais Angled Pig catheter in over wire. EDP Sample taken: LV 133/2,18; HR: 73 BPM; SpO2: 94%. LV gram performed in DENNEY @ 10 mL/second for a total of 30 mL. EDP Sample taken: LV 139/11,34; HR: 92 BPM; SpO2: 94%. Pullback taken: LV 141/9,34; AO 142/83(111); Mean: 0mmHg, Peak to Peak: 0mmHg, SEP: 9sec/min; HR: 92 BPM; SpO2: 95%. Catheter inserted over the exchange wire. Physician review of cine films. Catheter removed over the exchange wire. Wire out. PERRLA. Strong, equal hand sprinkler installer bilaterally. No VTE prophylaxis required. Medication's Wasted: Lidocaine 1% = 2 mL. Medication's Wasted: Nitro = 49.8 mg. Medication's Wasted: Heparin = 1000 units. Medication's Wasted: Other = versed 1 mg. Medication's Wasted: Other = fentanyl 75 mcg. Total IV fluids: 18 mL. Post-op diagnosis: non obstructive CAD. Complications: none. Estimated blood loss: 5mL-10mL. Responsiveness - Normal response to verbal stimuli; alert and oriented, PERRLA. Airway - Unaffected, no intervention required; spontaneous ventilation. Circulation: W/N/L, pulses unchanged. Nausea/Vomiting: No. Procedure completed. Patient transferred by wheelchair to CPRU. Vital chart was stopped. Access Site Site: Right Radial artery Sheath Size: 6 Fr Hemostasis Success: Unsuccessful Procedure Medications Start: 7:23 AM Stop: 7:23 AM Medication: Versed 1 mg and Fentanyl 25 mcg Amount: 1 Route: I.V. Start: 7:29 AM Stop: 7:29 AM Medication: Verapamil Amount: 5 mg Route: I.A. Start: 7:29 AM Stop: 7:29 AM Medication: Nitrogylcerin Amount: 200 mcg Route: I.A. Start: 7:33 AM Stop: 7:33 AM Medication: Heparin Amount: 5000 units Route: I.V. I, the attending physician, have reviewed and verified all procedure medications. Yes, all medications given per verbal order History/Risk Factors Hypertension: Yes Dyslipidemia: Yes Peripheral Arterial Disease (PAD): Yes Myocardial Infarction (ME): No Obesity: No Tobacco Use: Current/Recent(w/in 1 year) Prior Interventions PCI: No CABG: No Valve Surgery: No Report Signatures Finalized by Dr Yvette Storm MD [facility] on 06/01/2022 08:16 AM
[2022-06-01] MEDS: diphenhydrAMINE 50 mg Capsule PO (06:44)
--- NOTE | 2022-06-01 07:16 | W.PM.OPSUD ---
Surgery/Procedure H&P Update DATE OF PROCEDURE: June 01, 2022 DATE H&P PERFORMED: 05/04/22 H&P UPDATE INFORMATION: I have reviewed H&P completed within last 30 days, I have examined patient prior to procedure and No changes to prior documentation PREOP DIAGNOSIS: suspected CAD; multiple risk factors for CAD PRIMARY INDICATION FOR PROCEDURE: Abnormal myocardial perfusion imaging. Peripheral artery disease, hypertension, dyslipidemia, ventricular arrhythmia PLANNED PROCEDURE: Operation Date: 06/01/22 07:00 Proposed Procedures p Left heart Catheterization 75080, R94.39,R06.02,R07.9(Left) - Yvette Storm MD PATIENT REASSESSED PRIOR TO SEDATION, WITH NO CHANGE NOTED: Yes PHYSICAL EXAM: alert, oriented x 3, clear to auscultation bilaterally and regular rate & rhythm AIRWAY EVAL/ANESTHESIA PLAN: normal airway, see other exam findings, ASA II, Monitored Anesthesia, Local Anesthesia, Risks, benefits & alternatives of sedation and/or procedure discussed and Patient agrees to continue as planned
--- NOTE | 2022-06-01 07:55 | PC.NURSE ---
Pt transferred from hospital laboratory technician to CPRU 3 for recovery. Pt is drowsy, responds appropriately to verbal stimuli. Denies pain at this time. Pt placed on bedside skin specialist. Right wrist has TR band in place, site is asymptomatic. No signs of bleeding or hematoma. Right radial pulse palpable. Educated patient on right arm activity restrictions, verbalized understanding. Family member at bedside. Will continue to monitor.
--- NOTE | 2022-06-01 11:27 | PC.NURSE ---
TR Band Removal Note 0900 - 1 ml air removed from right radial TR band. Site asymptomatic, no bleeding or hematoma noted. Radial pulse palpable. 0910 - 2 ml air removed from right radial TR band. Site asymptomatic, no bleeding or hematoma noted. Radial pulse palpable. 0925 - 2 ml air removed from right radial TR band. Site asymptomatic, no bleeding or hematoma noted. Radial pulse palpable. 0935 - 2 ml air removed from right radial TR band. Site asymptomatic, no bleeding or hematoma noted. Radial pulse palpable. 0950 - 2 ml air removed from right radial TR band. Site asymptomatic, no bleeding or hematoma noted. Radial pulse palpable. 1000 - 2 ml air removed from right radial TR band. Site asymptomatic, no bleeding or hematoma noted. Radial pulse palpable. 1010 - 2 ml air removed from right radial TR band. Site asymptomatic, no bleeding or hematoma noted. Radial pulse palpable. 1020 - 2 ml air removed from right radial TR band. TR band deflated, left in place to monitor for bleeding. Site asymptomatic, no bleeding or hematoma noted. Radial pulse palpable. 1035 - Deflated TR band removed, placed band aid over site. Site asymptomatic, no signs of bleeding or hematoma.
== END 2022-06-01 12:35 | disposition home or self-care (01) ==
PROVIDERS: PCP Registered Nurse; Visit Provider Internal Medicine Cardiovascular Disease
DX: I25.10 Atherosclerotic heart disease of native coronary artery without angina pectoris (principal); R06.02 Shortness of breath; I10 Essential (primary) hypertension; E78.5 Hyperlipidemia, unspecified; F17.210 Nicotine dependence, cigarettes, uncomplicated; I49.9 Cardiac arrhythmia, unspecified; I77.9 Disorder of arteries and arterioles, unspecified
CPT/HCPCS: 36415; 93458; 96361; 96365; 99152; 99153; C1769; C1887; C1894; J1644; J2250; J3010; J3490; J7030; Q0163; Q9967

== ENCOUNTER → 2022-06-08 16:23 | Outpatient (BNVA) | payer MEDICARE, OTHER, SELFPAY | PROVIDERS: PCP Registered Nurse; Visit Provider Nurse Practitioner Family | DX: I25.10 Atherosclerotic heart disease of native coronary artery without angina pectoris (principal); I10 Essential (primary) hypertension; F17.210 Nicotine dependence, cigarettes, uncomplicated | CPT/HCPCS: 36415; 80048; 99214 ==

== ENCOUNTER → 2022-06-15 12:19 | Outpatient (BNVA) | payer MEDICARE, OTHER, SELFPAY | PROVIDERS: PCP Registered Nurse; Visit Provider Thoracic Surgery (Cardiothoracic Vascular Surgery) | DX: I87.2 Venous insufficiency (chronic) (peripheral) (principal) | CPT/HCPCS: 99203 ==

== ENCOUNTER 2022-06-24 11:45 | Outpatient (CLI) | payer MEDICARE, OTHER, SELFPAY ==
--- NOTE | 2022-06-24 12:00 | USCV_ITS ---
Inge Guzman Age: 67 Gender: F : 1955 Exam Date: 06/24/2022 12:33 Ordering Phys: Alejandro Butcher MD (Andy) ([email or web address]) Technologist: Aleks Toussaint Exam Location: [facility] – [place] Indication: HISTORY: PROCEDURES: Bilateral duplex Venous Insufficiency study of the Deep and Superficial systems was carried out according to normal protocol with the patient in supine positon for deep system and dependent position for the superficial system. FINDINGS: All deep veins demonstrated compressibility without evidence of intraluminal thrombus or increased echogenicity. Spectral analysis of Doppler signals demonstrates normal response to compression maneuvers indicating patency without obstruction. Reflux determinations were made with the patient in the dependent position, the weight being on the contralateral leg. Vein measurements and reflux times are listed below were applicable. No notable reflux was seen at this time. The veins were found to be easily compressible with spontaneous blood flow. Non pulsatile flow pattern. CONCLUSIONS No evidence of DVT in the above-mentioned identifiable veins. Normal caliber veins bilaterally with no evidence of insufficiency Dr Yevtte Storm MD FAC (Electronically Signed) Final Date: 26 June 2022 13:41 S
== END 2022-06-24 11:46 | disposition home or self-care (01) ==
LOC: RAD 11:50
PROVIDERS: PCP Registered Nurse; Visit Provider Thoracic Surgery (Cardiothoracic Vascular Surgery)
DX: M79.89 Other specified soft tissue disorders (principal)
CPT/HCPCS: 93970

== ENCOUNTER → 2022-07-06 13:29 | Outpatient (BNVA) | payer MEDICARE, OTHER, SELFPAY | PROVIDERS: PCP Registered Nurse; Visit Provider Thoracic Surgery (Cardiothoracic Vascular Surgery) | DX: I87.2 Venous insufficiency (chronic) (peripheral) (principal); F17.210 Nicotine dependence, cigarettes, uncomplicated; Z79.82 Long term (current) use of aspirin | CPT/HCPCS: 99212 ==

== ENCOUNTER 2022-09-17 09:54 | Outpatient (CLI) | payer MEDICARE, OTHER, SELFPAY ==
--- NOTE | 2022-09-17 10:00 | MM_ITS ---
WS: [id number] BILATERAL SCREENING DIGITAL TOMOSYNTHESIS MAMMOGRAM WITH CAD HISTORY: SCREEN COMPARISON: 09/04/2021, 07/04/2020 Bilateral CC and MLO views with tomosynthesis and synthetic mammography submitted. Computer aided det ection analyzed. Breast composition: The breasts are heterogeneously dense, which may obscure small masses. No suspici ous masses, microcalcifications or architectural distortion. Benign calcifications within each breast . Long-term stability ovoid 14 mm mass upper outer quadrant RIGHT breast. MM/[place] [id number] IMPRESSION: BI-RADS: 2-Benign FOLLOW UP: 1 Year Follow-up
== END 2022-09-17 09:55 | disposition home or self-care (01) ==
PROVIDERS: PCP Registered Nurse; Visit Provider Registered Nurse
DX: Z12.31 Encounter for screening mammogram for malignant neoplasm of breast (principal)
CPT/HCPCS: 77063; 77067

== ENCOUNTER → 2022-09-24 10:55 | Outpatient (BNVA) | payer MEDICARE, OTHER, SELFPAY | PROVIDERS: PCP Registered Nurse; Visit Provider Nurse Practitioner Family | DX: I25.10 Atherosclerotic heart disease of native coronary artery without angina pectoris (principal); I77.9 Disorder of arteries and arterioles, unspecified; I87.2 Venous insufficiency (chronic) (peripheral); F17.210 Nicotine dependence, cigarettes, uncomplicated; I10 Essential (primary) hypertension | CPT/HCPCS: 99214 ==

== ENCOUNTER → 2022-10-27 13:54 | Outpatient (BNVA) | payer MEDICARE, OTHER, SELFPAY | PROVIDERS: PCP Registered Nurse; Visit Provider Podiatrist Foot & Ankle Surgery | DX: L60.3 Nail dystrophy (principal); I73.9 Peripheral vascular disease, unspecified | CPT/HCPCS: 99203 ==

== ENCOUNTER → 2022-12-16 14:11 | Outpatient (BNVA) | payer MEDICARE, OTHER, SELFPAY | PROVIDERS: PCP Registered Nurse; Visit Provider Student in an Organized Health Care Education/Training Program | DX: M23.332 Other meniscus derangements, other medial meniscus, left knee; M23.362 Other meniscus derangements, other lateral meniscus, left knee | CPT/HCPCS: 73560; 73565; 99203 ==

== ENCOUNTER 2023-01-12 13:40 | Outpatient (CLI) | payer MEDICARE, OTHER, SELFPAY ==
--- NOTE | 2023-01-12 14:30 | MR_ITS ---
WS: [id number] MRI LEFT KNEE HISTORY: djd left knee COMPARISON: 12/16/2022 Anterior cruciate ligament: Intact. Posterior cruciate ligament: Intact. Medial collateral ligament: Intact. Posterior lateral corner structures: Increased T2 signal extends from the joint line to the iliotibia l band. There is mild osteophyte encroachment and a small amount of edema extending to the iliotibial band. Medial menisci: Intact. Normal signal, size and shape. Lateral meniscus: Anterior horn is partially extruded from the joint space. Increased signal is inter mediate within the posterior horn. Mild blunting of the free edge. Posterior inferior mild meniscocap sular separation. There is increased vertical signal in the posterior meniscus with extension into th e meniscal root. Extensor mechanism: Distal quadriceps tendon and patellar tendons are intact. Fluid and soft tissue: Small suprapatellar joint effusion. There is mild edema surrounding the knee. No Manuel's cyst. Osseous and articular structures: Patellofemoral compartment: Mild narrowing of the patellofemoral compartment with mild chondromalacia . No marrow edema. Medial compartment: Very mild narrowing of the medial compartment with mild chondromalacia. No marrow edema. Lateral compartment: Moderate narrowing lateral compartment with moderate chondromalacia. Focal marro w edema extends from the tibial plateau into the metaphysis. Marrow edema is predominantly within the lateral most tibial plateau. Additional osteochondral changes along the weightbearing surface of the tibial plateau. There is a small osteophyte extending toward the iliotibial band. Also noted is a small amount of fluid involving the proximal tibiofibular articulation. IMPRESSION: 1. Moderate lateral compartment joint space narrowing with chondromalacia and marrow edema. Additiona l osteochondral defect along the weightbearing surface of the lateral tibial plateau. 2. Osteophyte from the lateral tibial plateau extends to abut the iliotibial band with mild edema and increased fluid at the friction site. 3. Posterior horn lateral meniscus with abnormal signal. Meniscocapsular separation with increased fl uid extending along the posterior inferior meniscus toward the root. 4. Small suprapatellar joint effusion and mild soft tissue edema. 5. Mild patellofemoral compartment narrowing with chondromalacia.
== END 2023-01-12 13:41 | disposition home or self-care (01) ==
PROVIDERS: PCP Registered Nurse; Visit Provider Student in an Organized Health Care Education/Training Program
DX: M17.12 Unilateral primary osteoarthritis, left knee (principal); M23.304 Other meniscus derangements, unspecified medial meniscus, left knee; M22.42 Chondromalacia patellae, left knee; M21.962 Unspecified acquired deformity of left lower leg; M25.762 Osteophyte, left knee
CPT/HCPCS: 73721

== ENCOUNTER → 2023-12-29 10:00 | Outpatient (BNVA) | payer MEDICARE, OTHER, SELFPAY | PROVIDERS: PCP Registered Nurse; Visit Provider Internal Medicine Cardiovascular Disease | DX: R06.02 Shortness of breath (principal); R60.0 Localized edema; I10 Essential (primary) hypertension; E78.5 Hyperlipidemia, unspecified; I87.2 Venous insufficiency (chronic) (peripheral); I49.9 Cardiac arrhythmia, unspecified; I73.9 Peripheral vascular disease, unspecified | CPT/HCPCS: 36415; 80048; 83880; 99214 ==

== ENCOUNTER 2024-01-13 14:00 | Outpatient (CLI) | payer MEDICARE, OTHER, SELFPAY ==
--- NOTE | 2024-01-13 14:20 | MM_ITS ---
WS: [id number] BILATERAL 3D TOMOSYNTHESIS DIGITAL SCREENING MAMMOGRAPHY WITH CAD CLINICAL INFORMATION: SCREENING HISTORY: Screening mammogram. No current complaints. COMPARISON: 2022 TECHNIQUE: Bilateral CC and MLO views. FINDINGS: The breasts are composed of heterogeneous fibroglandular density tissue, which can limit the detectio n of small underlying mass lesions. No suspicious mass, asymmetry, calcifications, or architectural d istortion. No evidence of malignancy. Punctate and lucent centered calcifications. Long-term stabilit y 1.5 cm nodule upper outer RIGHT breast. MM/MM [facility] tomosynthesis [id number] IMPRESSION: DENSITY:The breasts are heterogeneously dense, which may obscure small masses. BI-RADS: 2 - Benign FOLLOW UP: 1 Year Follow-up Recommend return to annual screening mammography.
== END 2024-01-13 14:13 | disposition home or self-care (01) ==
PROVIDERS: PCP Registered Nurse; Visit Provider Registered Nurse
DX: Z12.31 Encounter for screening mammogram for malignant neoplasm of breast (principal); R92.333 Mammographic heterogeneous density, bilateral breasts; R92.1 Mammographic calcification found on diagnostic imaging of breast; N63.11 Unspecified lump in the right breast, upper outer quadrant
CPT/HCPCS: 77063; 77067

== ENCOUNTER → 2024-06-06 11:22 | Outpatient (BNVA) | payer MEDICARE, OTHER, SELFPAY | PROVIDERS: PCP Registered Nurse; Visit Provider Internal Medicine Cardiovascular Disease | DX: I10 Essential (primary) hypertension (principal); Z86.73 Personal history of transient ischemic attack (TIA), and cerebral infarction without residual deficits; I65.23 Occlusion and stenosis of bilateral carotid arteries; E78.5 Hyperlipidemia, unspecified; I77.9 Disorder of arteries and arterioles, unspecified; I87.2 Venous insufficiency (chronic) (peripheral); I49.8 Other specified cardiac arrhythmias; F17.210 Nicotine dependence, cigarettes, uncomplicated | CPT/HCPCS: 99214 ==

== ENCOUNTER 2024-06-14 15:21 | Outpatient (CLI) | payer MEDICARE, OTHER, SELFPAY ==
--- NOTE | 2024-06-14 15:30 | USCV_ITS ---
Inge Guzman Age: 69 Gender: F : 1955 Exam Date: 06/14/2024 15:44 Ordering Phys: Yvette Storm MD ([email or web address]) Technologist: CT Exam Location[place] [facility] [place] Ind[place]: Risk Factors: Previous Vascular Surgery: Right Brachial BP: / Left Brachial BP: / Right Left Velocity (cm/s) Spectral Plaque Velocity (cm/s) Spectral Plaque Syst/Diast Broadening Syst/Diast Broadening 90.60/ 25.80 Prox CCA 96.60 / 22.60 66.80/ 20.50 Mid CCA 79.50 / 26.40 66.80/ 20.50 Distal CCA 70.00 / 27.60 103.10/27.20 Prox ICA 83.70 / 25.60 65.40/ 24.30 Mid ICA 66.80 / 28.60 88.60/ 27.90 Distal ICA 77.20 / 33.00 72.10 ECA 90.90 1.50 ICA/CCA 1.20 Antegrade Vertebral Antegrade 51.20/ 12.60 cm/s 44.40/ 13.00 cm/s Bi Subclavian Bi 108.0 60.20 0 FINDINGS Comparison: none available. No significant elevation of systolic or diastolic velocities. Waveforms are normal. Mild atherosclerotic plaque at the bifurcations. CONCLUSIONS Bilateral ICA stenosis less than 50%. Dr. Idalia Parra DO (Electronically Signed) Final Date: 14 June 2024 16:35 S
== END 2024-06-14 15:22 | disposition home or self-care (01) ==
PROVIDERS: PCP Registered Nurse; Visit Provider Internal Medicine Cardiovascular Disease
DX: I65.23 Occlusion and stenosis of bilateral carotid arteries (principal); R93.89 Abnormal findings on diagnostic imaging of other specified body structures
CPT/HCPCS: 93880

== ENCOUNTER 2025-02-27 15:46 | Outpatient (CLI) | payer MEDICARE, OTHER, SELFPAY ==
--- NOTE | 2025-02-27 16:01 | MM_ITS ---
WS: [id number] BILATERAL 3D TOMOSYNTHESIS DIGITAL SCREENING MAMMOGRAPHY WITH CAD CLINICAL INFORMATION: SCREENING MAMMOGRAM HISTORY: Screening mammogram. No current complaints. COMPARISON: 2023 TECHNIQUE: Bilateral CC and MLO views. FINDINGS: Scattered fibroglandular densities bilaterally. No suspicious focal mass, asymmetry, calcifications, or architectural distortion. No evidence of malignancy. Incidental punctate and lucent centered calcifications. Long-term stability 1.5 cm nodule upper outer RIGHT breast. MM/MM scr tomosynthesis [id number] IMPRESSION: DENSITY: There are scattered areas of fibroglandular density. BI-RADS: 2 - Benign. FOLLOW UP: 1 Year Follow-up Recommend return to annual screening mammography.
== END 2025-02-27 15:47 | disposition home or self-care (01) ==
LOC: RAD 15:48
PROVIDERS: PCP Registered Nurse; Visit Provider Registered Nurse
DX: Z12.31 Encounter for screening mammogram for malignant neoplasm of breast (principal); R92.323 Mammographic fibroglandular density, bilateral breasts; R92.1 Mammographic calcification found on diagnostic imaging of breast; N63.11 Unspecified lump in the right breast, upper outer quadrant
CPT/HCPCS: 77063; 77067

== ENCOUNTER → 2025-03-15 09:11 | Outpatient (BNVA) | payer MEDICARE, OTHER, SELFPAY | PROVIDERS: PCP Registered Nurse; Visit Provider Nurse Practitioner Family | DX: E78.5 Hyperlipidemia, unspecified (principal); I10 Essential (primary) hypertension; I73.9 Peripheral vascular disease, unspecified; I49.9 Cardiac arrhythmia, unspecified; I87.2 Venous insufficiency (chronic) (peripheral); F17.210 Nicotine dependence, cigarettes, uncomplicated; Z79.82 Long term (current) use of aspirin; Z86.73 Personal history of transient ischemic attack (TIA), and cerebral infarction without residual deficits; R06.02 Shortness of breath; I25.10 Atherosclerotic heart disease of native coronary artery without angina pectoris | CPT/HCPCS: 80048; 83880; 85025; 99214 ==